=== PATIENT | female | born 1975 | race Hispanic/Latino ===

== ENCOUNTER 2020-02-07 22:48 | Inpatient (IN) | payer OTHER ==
[~2020-02-07] VITALS: Ht 160 cm; Wt 85.3 kg
[2020-02-07] MEDS ORDERED: GLUCOTROL XL10 MG PO (23:01)
[2020-02-07] MEDS ORDERED: METFORMIN HCL1000 MG PO (23:02)
[2020-02-07] MEDS ORDERED: SIMVASTATIN20 MG PO (23:02)
--- NOTE | 2020-02-08 01:30 | NUR ---
Patient arrives to the unit via stretcher wearing a mask and a clean sheet. Patient steady on feet, able to transfer independently to bed. Vital signs taken, assessment complete. Temp of 100.2, SpO2 of 94% on RA, pulse of 105. NS bolus infusing, along with ceftriaxone. Dry, nonproductive cough noted. Patient denies pain or nausea. Water provided. 0200 - NS bolus and ceftriaxone finished infusing. LR hung at 100 mls/hr, along with azithromycin at 250 mls/hr. Patient denies any needs at this time, call light within reach.
--- NOTE | 2020-02-08 03:06 | NUR ---
PT CALLED, UP TO BATHROOM. DID NOT REQUIRE ANY ASSISTANCE OTHER THAN UNPLUGGING IV PUMP. PT STEADY ON FEET. VOID UNMEASURED (MISSED HAT). BSC PLACED NEAR BED SO THAT PT CAN USE BATHROOM WITHOUT ASSISTANCE. PT DENIES FURTHER REQUESTS AT THIS TIME, CALL LIGHT WITHIN REACH.
--- NOTE | 2020-02-08 04:30 | NUR ---
Patient sleeping in bed, respirations even and unlabored. SpO2 of 98% on RA. HR in the 100's. Call light within reach.
--- NOTE | 2020-02-08 06:10 | NUR ---
Patient laying in bed watching tv. New IV started, morning labs drawn from site. Vitals taken, assessment complete. Patient reports pain of 6/10 from headache. Patient up to toilet, voided 1000 mls. HR increases to 120-130's with ambulation. Patient returned to bed independently, steady gait. HR decreases to 100's once back in bed. LR infusing at 100 mls/hr. Water refreshed, patient denies further needs. Call light within reach.
--- NOTE | 2020-02-08 07:30 | NUR ---
SHIFT REPORT RECIEVED FROM RETAIL PERSONAL BANKER RN. PATIENT RESTING IN BED AT THIS TIME. PATIENTS HR IS RESTING ABOUT 105 WILL SLEEPING, BUT INCREASES WITH ACTIVITY. NO OTHER NEEDS AT THIS TIME. CALL LIGHT IN REACH. PATIENT CALLS APPROPRIATELY. WILL CONTINUE TO CLOSELY MONITOR.
--- NOTE | 2020-02-08 09:15 | NUR ---
THIS RN IN TO SEE PATIENT IN PAPR GEAR AND DROPLET PRECAUTIONS. PATIENT ASSESSMENT COMPLETED. UNABLE TO LISTEN TO PATIENTS BREATH SOUNDS D/T WEARING PAPR. PATIENT COMPLAINS OF OCCASIOANL SOB, PATIENT RR 24-30, SPO2 96% ON RA. PATIENTS PULSES ARE STRONG. NO EDEMA NOTED. PATIENT COMPLAINS OF A FRONTAL HEADACHE. PATIENT REQUESTED TO KEEP THE LIGHTS TURNED DOWN. ASSISSTED UP TO THE BATHROOM. PATIENT IS INDEPENDENT ONCE DISCONNECTED FROM CORDS. PLACE A BLANKET IN THE CHAIR. BREAKFAST IN FRONT OF PATIENT. CALL LIGHT ON HER LAP. FLUIDS GOING AT 100MLS/HR PER ORDER. WILL CONTINUE TO CLOSELY MONITOR.
--- NOTE | 2020-02-08 11:04 | NUR ---
PATIENT STILL HAS A HEADACHE 6/10 IN THE FRONTAL AREA. PATIENT HAS A NON-PRODUCTIVE COUGH. PATIENT ATE 100% OF HER BREAKFAST. NO NAUSEA OR VOMITING PRESENT. PATIENT REMAINS ON RA WITH SPO2 94%. PRBC STARTED PER MD MANNING WILL GIVE 1 UNIT OF PRBC. PATIENT TOLERATING WELL. WILL CONTINUE TO CLOSELY MONITOR.
--- NOTE | 2020-02-08 12:45 | NUR ---
PATIENTS HEADACHE IS NOW GONE. PATIENT STATES "I FEEL A LITTLE BETTER THAN WHEN I FIRST CAME IN". PATIENT ASSESSMENT REMAINS UNCHANGED. UNABLE TO LISTEN TO PATIENTS BREATH SOUNDS D/T PAPR GEAR. PATIENT DENIES SOB EVEN WITH EXERTION. PATIENT HAS OCCASIOANL COUGH. PATIENT SPO2 95% ON RA. [id number]. BLOOD TRANSFUSION IS GOING AT THIS TIME. LUNCH ORDERED. ASSISTED PATIENT UP TO THE BATHROOM AND NOW RESTING I NTHE CHAIR EATING LUNCH. WILL CONTINUE TO CLOSELY MONITOR.
--- NOTE | 2020-02-08 14:14 | NUR ---
MED REC COMPLETE
--- NOTE | 2020-02-08 14:15 | NUR ---
BLOOD TRANSFUSION COMPLETED. PATIENT RESTING IN BED. PATIENT STATES SHE IS STILL DOING WELL, DENEIS SOB. DRY COUGH NOTED. WILL GET SPUTUM SAMPLE IF IT BECOMES MORE PRODUCTIVE. PATIENT FAMILY BROUGHT HER BELONGINGS. GAVE PATIENT THEM. PATIENT REQUESTED TO HAVE HER PHONE PLUGGED IN. NO OTHER NEEDS AT THIS TIME. CALLIGHT IN REACH. WILL CONTINUE TO CLOSELY MONITOR.
--- NOTE | 2020-02-08 14:42 | NUR ---
Completed CM assessment by phone with Marlyn as covid lab is pending. Pt states she lives in [place] and works at the [employer]. She is currently off work. She lives with her two adult children and they are able to help her on dc. She does not use any DME. States she is usually healthy and active. See Ana Luisa Barreto at the clinic and uses their pharmacy. She would like to go home on dc.
--- NOTE | 2020-02-08 16:06 | NUR ---
THIS RN IN TO ASSIST PATIENT. PATIENT UP TO THE BATHROOM AND PANTS CHANGED. PATIENT IS SPOTTING FROM HER PERIOD. GAVE HER A CLEAN PAD. ASSISTED BACK TO BED. ASSESSMENT REMAINS UNCHANGED. PATIENTS HR IS SLIGHTLY BETTER THIS AFTERNOON. NO OTHER NEEDS AT THIS TIME. WILL CONTINUE TO CLSOELY MONITOR.
--- NOTE | 2020-02-08 18:24 | NUR ---
PATIENT UP TO THE CHAIR FOR DINNER. PATIENT STATES "MY HEADACHE IS COMING BACK". GAVE PATIENT A CUP OF TEA AND WILL GET TYLENOL. CHECKED PATIENTS TEMP AND NOTED TO BE 103.3. PATIENT DENEIS FEELING COLD OR HAVING CHILLS. DEBI WU CALLED TO UPDATE. SEE NEW ORDERES. WILL CONTINUE TO CLOSELY MONITOR.
--- NOTE | 2020-02-08 19:18 | NUR ---
BLOOD CULTURES DRAWN PER MD MANNING D/T TEMP 103.3. GAVE TYLENOL AFTER BLOOD CULTURES WERE COMPLETED AND DRAWN. PATIENT UP TO THE BATHROOM. NO OTHER NEEDS AT THIS TIME. FRESH WATER AT THE BEDSIDE. WILL CONTINUE TO CLSOELY MONITOR.
--- NOTE | 2020-02-08 19:42 | NUR ---
REPORT RECEIVED FROM TAMIE WU. PT AWAKE IN BED, IN TO CHECK ON HER AND PT DENIES PAIN OR NEEDS. HAS DRY SOUNDING COUGH. RESTING HR 115, RR 28 AND SPO2 ON ROOM AIR 97%.
--- NOTE | 2020-02-08 20:30 | NUR ---
IN TO DO ASSESSMENT AND BLOOD SUGAR. PT STATES HEADACHE SHE HAD EARLIER IS ALMOST GONE. TEMP IS ALSO DOWN. FRUIT GIVEN FOR SNACK PER REQUEST. PT HAS HAD FREQUENT DRY COUGH FOR THE LAST HOUR. LUNGS CLEAR BUT SLIGHTLY DIM ON RIGHT SIDE.
--- NOTE | 2020-02-08 22:15 | NUR ---
IN TO DO VS, PT UP TO BR TO VOID THEN BACK TO BED. HR UP TO 115 WHEN UP THEN BACK DOWN TO 100 IN BED. DENIES PAIN/NEEDS.
--- NOTE | 2020-02-09 00:15 | NUR ---
IN TO CHECK ON PT AND DO ASSESSMENT, WAKES EASILY AND DENIES PAIN OR OTHER NEEDS.
--- NOTE | 2020-02-09 03:33 | NUR ---
UP TO VOID 1000ML, ASSESSMENT DONE. PT DENIES NEEDS AT THIS TIME.
--- NOTE | 2020-02-09 06:00 | NUR ---
ASSISTED PT UP TO VOID THEN BACK TO BED, DENIES PAIN OR OTHER NEEDS AT THIS TIME.
--- NOTE | 2020-02-09 07:30 | NUR ---
PATIENT SHIFT REPORT RECIEVED FROM EHR TRAINER RN. PATIENT RESTING IN BED AT THSI TIME. CALL LIGHT IN REACH. WILL CONTINUE TO CLOSELY MONITOR.
--- NOTE | 2020-02-09 08:42 | NUR ---
PATIENT CALLED TO GET UP TO THE BATHROOM. UNHOOKED FROM CORDS AND PATIENT AMBULATED INTO THE BATHROOM. AM CARES DONE. PATIENT NOW RESTING IN THE CHAIR. BREAKFAST ORDERED. WINDOW OPENED. NO OTHER NEEDS AT THIS TIME. WILL CONTINUE TO CLOSELY MONITOR.
--- NOTE | 2020-02-09 09:45 | NUR ---
BROUGHT PATIENT HER BREAKFAST. PER MD MAY CLEAR PATIENT FROM ISOLATION PRECAUTIONS. MD MANNING IN TO SEE PATIENT. NO OTHER NEEDS AT THIS TIME. WILL CONTINUE TO CLSOELY MONITOR.
--- NOTE | 2020-02-09 12:30 | NUR ---
REPORT GIVEN TO GABBIE ON Novatris. PATIENT WILL TRANSFER TO ROOM 113. PATIENT IS UP TO THE CHAIR RIGHT NOW EATING LUNCH. UPDATED ON PLAN OF CARE. NO FURTHER QUESTIONS AT THIS TIME. WILL CONTINUE TO CLSOELY MONITOR.
--- NOTE | 2020-02-09 13:15 | NUR ---
PT TRANSFERRED FROM CCU TO ROOM 113, SHE IS ALERT, ORIENTED AND IN GOOD SPIRITS, DENIES ANY QUESTIONS OR CONCERNS, ORIENTED TO NEW ROOM, ASKED IF SHE CAN TAKE A SHOWER, DENIES SOB OR DISCOMFORT. PLEASED WITH ROOM, CALL LIGHT IN EASY REACH.
--- NOTE | 2020-02-09 13:24 | NUR ---
AMBULATED WITH PATIENT OVER TO ROOM 113. PATIENT TOLERATED WELL. ALL BELONGINGS SENT WITH PATIENT. ALL QUESTIONS ANSWERED. NO FURTHER QUESTIONS AT THIS TIME. WILL CONTINUE TO CLOSELY MONITOR.
--- NOTE | 2020-02-09 13:45 | NUR ---
PATIENT HAD SHOWER, STATES SHE FEELS MUCH BETTER, WAITING FOR TO COME VISIT, DENIES ANY NEEDS.
--- NOTE | 2020-02-09 14:28 | NUR ---
PATIENT SITTING UP IN CHAIR. PATIENT TOOK A SHOWER. VITAL SIGNS DONE. CALL LIGHT WITHIN REACH. NO OTHER NEEDS AT THIS TIME
--- NOTE | 2020-02-09 17:35 | NUR ---
Pt a&ox4, independent in room. Denies pain, reports cough. Pt calls appropriately. PO zithromax/ IV rocephin.
--- NOTE | 2020-02-09 17:59 | NUR ---
robitussin 10ml admin for reports of cough.
--- NOTE | 2020-02-09 18:03 | NUR ---
PATIENT SITTING UP IN BED. RN AND DAUGHTER IN ROOM. VITAL SIGNS AND I&O DONE. CALL LIGHT WITHIN REACH. NO OTHER NEEDS AT THIS TIME
--- NOTE | 2020-02-09 19:42 | NUR ---
SHIFT REPORT RECIEVED FROM BUNNY WU. PT RESTING IN BED, WATCHING TV. NO NEEDS AT THIS TIME. CALL LIGHT IN REACH.
--- NOTE | 2020-02-09 21:36 | NUR ---
ASSESSMENT COMPLETED. IVs CDI, WNL, FLUSHED WELL. LUNGS CLEAR IN ALL LOBES. PT DENIES SOB. SCHEDULED MEDS PROVIDED. JELLO PROVIDED. CBG 171, INSULIN PROVIDED. NO OTHER NEEDS AT THIS TIME. CALL LIGHT IN REACH.
--- NOTE | 2020-02-09 22:12 | NUR ---
99.9f TEMP, FEVER MED PROVIDED. PT REQUESTS COUGH MED, PROVIDED. NO OTHER NEEDS AT THIS TIME CALL LIGHT IN REACH.
--- NOTE | 2020-02-10 00:45 | NUR ---
PT RESTING IN BED, WAKES TO VOICE. TEMP 98.0f ORAL. NO OTHER NEEDS. CALL LIGHT IN REACH.
--- NOTE | 2020-02-10 03:00 | NUR ---
PT RESTING IN BED, EYES CLOSED. RR EVEN, UNLABORED. CALL LIGHT IN REACH.
--- NOTE | 2020-02-10 05:59 | NUR ---
PT SLEPT WELL TONIGHT. VSS, UOS, NO SOB. PT TEMP 99.9f ORAL, MANAGED WITH TYLENOL. PT TOLERATED DIET WELL. CBG 171, MANAGED WITH MEDICATION. IV WNL, FLUSHED WELL. LUNGS CLEAR. OCCASSIONAL DRY COUGH, MANAGED WITH PRN MEDICATION. PT TOLERATED MEDICATION WELL.
--- NOTE | 2020-02-10 06:27 | NUR ---
ASSESSMENI, VS AND I&O COMPLETED. LUNGS CLEAR. NO SOB. IVs WNL. PT DENIES PAIN. NO OTHER NEEDS. CALL LIGHT IN REACH.
--- NOTE | 2020-02-10 07:19 | NUR ---
PT RESTING SOUNDLY AT TIME OF REPORT, LEFT UNDISTURBED. APPEARS COMFORTABLE BREATHING EVEN AND UNLABORED CALL LIGHT IN REACH
--- NOTE | 2020-02-10 07:40 | NUR ---
IN ROOM FOR AM SUGAR CHECK. PATIENT SITTING UP IN BED. CALL LIGHT IN REACH.
--- NOTE | 2020-02-10 09:19 | NUR ---
PT UP TO THE CHAIR FOR MORNING MEAL ASKING IF SHE GETS TO GO HOME TODAY STATES SHE IS READY. AMBULATES THE DIAZ AND RETURNS TO THE CHAIR IN HER ROOM. PT HAS A DRY COUGH NO C/O SOB OR NEEDS OF
[2020-02-10] MEDS ORDERED: CEFPODOXIME PR200 MG PO (09:38)
--- NOTE | 2020-02-10 09:58 | NUR ---
DR MANNING IN TO SEE PT DC ORDERS WRITTEN. PT REFUSES ASSIST TO DRESS, IV SITES DC'D X2.
--- NOTE | 2020-02-10 10:21 | NUR ---
D/C VITALS AND I&OS DONE AND CHARTED. PATIENT READY TO GO.
== END 2020-02-10 11:45 | disposition home or self-care (01) | DRG 195 ==
LOC: ED 22:48 → CCU 22:50 → MS 02-09 13:15
PROVIDERS: ADMIT Internal Medicine
PROC: 30233N1 Transfusion of Nonautologous Red Blood Cells into Peripheral Vein, Percutaneous Approach (ICD-10-PCS; principal; 2020-02-08)
DX: J13 Pneumonia due to Streptococcus pneumoniae (principal); J18.8 Other pneumonia, unspecified organism; E78.5 Hyperlipidemia, unspecified; E11.9 Type 2 diabetes mellitus without complications; D50.0 Iron deficiency anemia secondary to blood loss (chronic); N92.0 Excessive and frequent menstruation with regular cycle; E87.6 Hypokalemia; Z20.828 Contact with and (suspected) exposure to other viral communicable diseases; Z79.899 Other long term (current) drug therapy; Z79.84 Long term (current) use of oral hypoglycemic drugs
CPT/HCPCS: 36415; 36430; 71046; 80048; 80053; 83036; 83605; 83735; 85025; 86850; 86900; 86901; 86920; 94667; 94668; 99285-25; C9803; G0378; J0456; J0696; J1650; J1815; J7030; J7060; J7121; P9016; U0002

== ENCOUNTER 2020-09-12 02:20 | Emergency (ER) | payer OTHER ==
[~2020-09-12] VITALS: Ht 160 cm; Wt 81.6 kg
[~2020-09-12 02:20] MED LIST: CEFPODOXIME PR200 MG PO; GLUCOTROL XL10 MG PO; METFORMIN HCL1000 MG PO; SIMVASTATIN20 MG PO
[2020-09-12] MEDS ORDERED: CEPHALEXIN500 MG PO (04:39)
[2020-09-12] MEDS ORDERED: FEROSUL325 MG PO (04:39)
== END 2020-09-12 05:40 | disposition home or self-care (01) ==
LOC: ED 02:20
DX: A41.89 Other specified sepsis (principal); N39.0 Urinary tract infection, site not specified; U07.1 COVID-19; D50.9 Iron deficiency anemia, unspecified; E11.9 Type 2 diabetes mellitus without complications; Z79.899 Other long term (current) drug therapy; Z79.84 Long term (current) use of oral hypoglycemic drugs
CPT/HCPCS: 71045; 80053; 81001; 83605; 85025; 87040; 87077; 87088; 87186; 96365; 99285-25; J0696

== ENCOUNTER 2021-08-10 10:40 | Emergency (ER) | payer OTHER ==
[~2021-08-10] VITALS: Ht 160 cm; Wt 81.7 kg
[~2021-08-10 10:40] MED LIST changes: +CEPHALEXIN500 MG PO; +FEROSUL325 MG PO
[2021-08-10] MEDS ORDERED: AUGMENTIN 875-1 EACH PO (14:20)
== END 2021-08-10 14:34 | disposition home or self-care (01) ==
LOC: ED 10:40
DX: J18.9 Pneumonia, unspecified organism (principal); Z20.822 Contact with and (suspected) exposure to COVID-19; E11.9 Type 2 diabetes mellitus without complications; D64.9 Anemia, unspecified; Z79.899 Other long term (current) drug therapy; Z79.84 Long term (current) use of oral hypoglycemic drugs
CPT/HCPCS: 71045; 99284-25; C9803; U0003

== ENCOUNTER 2024-05-19 16:01 | Emergency (ER) | payer OTHER ==
[~2024-05-19] VITALS: Ht 160 cm; Wt 84.1 kg
[~2024-05-19 16:01] MED LIST changes: +AUGMENTIN 875-1 EACH PO
[2024-05-19] MEDS ORDERED: PIOGLITAZONE HC15 MG PO (17:20)
[2024-05-19] MEDS ORDERED: ATORVASTATIN CA20 MG PO (17:21)
[2024-05-19] MEDS ORDERED: DAPAGLIFLOZIN10 MG PO (17:21)
[2024-05-19] MEDS ORDERED: LISINOPRIL10 MG PO (17:21)
[2024-05-19] MEDS ORDERED: GABAPENTIN300 MG PO (17:21)
[2024-05-19 17:28] LABS: BASOPHILS 1.1 % (0-2); EOSINOPHILS 0.6 % (0-6); HEMOGLOBIN 11.6 g/dL (12.0-18.0); LYMPHOCYTES 34.8 % (24-44); MCH 25.1 (27-36); MCHC 31.2 g/dl (30-36); MCV 80.3 fl (81-99); NEUTROPHILS 59.5 % (39-80); PLATELET COUNT 426 K/uL (140-440); RBC 4.61 M/ul (4.3-5.7); RDW 18.9 (10.5-15.0)
[2024-05-19 17:30] VITALS: BP 135/69
[2024-05-19 17:47] LABS: ALBUMIN 3.7 g/dL (3.4-5.0); ALKALINE PHOSPHATASE 83 U/L (46-116); ALT (SGPT) 18 U/L (14-59); ANION GAP 13.9 (7-21); AST (SGOT) 14 U/L (15-37); BILIRUBIN, TOTAL 0.2 ng/dL (0.2-1.0); BUN/CREATININE RATIO 12.85 (6.0-28.6); CALCIUM 9.7 mg/dL (8.5-10.1); CARBON DIOXIDE 28 mmol/L (21-32); CHLORIDE 105 mmol/L (98-107); GLOMERULAR FILTRATION RATE,EST 107 mL/min (>60); MAGNESIUM 2.2 mg/dL (1.8-2.4); POTASSIUM 3.9 mmol/L (3.5-5.1); PROTEIN, TOTAL 7.8 g/dL (6.4-8.2); UREA NITROGEN 9 mg/dL (7-18)
--- NOTE | 2024-05-20 21:03 | EKG ---
[facility] [address] [place], [place] [address] Signed Normal sinus rhythm Low voltage QRS Cannot rule out Anterior infarct , age undetermined Abnormal ECG No previous ECGs available Confirmed by Jay Carrion MD ([id number]) on 05/20/2024 9:03:37 PM Electronically Signed By: JAY CARRION MD [id number] PATIENT NAME: NOAH MOSERJUANA Electrocardiogram DATE OF : 75 PHYSICIAN: JAY CARRION MD REPORT #: [id number] REPORT IS CONFIDENTIAL AND NOT TO BE RELEASED WITHOUT AUTHORIZATION
== END 2024-05-19 17:30 | disposition home or self-care (01) ==
LOC: ED 16:01
PROVIDERS: Emergency Medicine
DX: R42 Dizziness and giddiness (principal); R07.89 Other chest pain; E11.9 Type 2 diabetes mellitus without complications; Z79.84 Long term (current) use of oral hypoglycemic drugs; Z79.899 Other long term (current) drug therapy
CPT/HCPCS: 36415; 80053; 83735; 84484; 85025; 93005; 93010; 99285

== ENCOUNTER 2024-07-16 07:53 | Emergency (ER) | payer OTHER ==
[~2024-07-16] VITALS: Ht 160 cm; Wt 82.9 kg
[~2024-07-16 07:53] MED LIST changes: +ATORVASTATIN CA20 MG PO; +DAPAGLIFLOZIN10 MG PO; +GABAPENTIN300 MG PO; +LISINOPRIL10 MG PO; +PIOGLITAZONE HC15 MG PO
[2024-07-16] MEDS ORDERED: ondansetron HCL 4 MG/2 ML VIAL IV ONE (08:15)
[2024-07-16] MEDS ORDERED: SODIUM CHLORIDE 0.9% 1,000 ML IV ONE (08:15)
[2024-07-16] MEDS ORDERED: KETOROLAC TROMETHAMINE 30 MG/ML VIAL IV ONE ×2 (08:15→09:00)
[2024-07-16 08:32] LABS: BASOPHILS 0.4 % (0-2); EOSINOPHILS 0.1 % (0-6); HEMATOCRIT 36.8 % (35.0-50.0); HEMOGLOBIN 12.1 g/dL (12.0-18.0); LYMPHOCYTES 13.4 % (24-44); MCH 27.1 (27-36); MCHC 32.8 g/dl (30-36); MCV 82.5 fl (81-99); MONOCYTES 4.7 % (0-12); NEUTROPHILS 81.4 % (39-80); PLATELET COUNT 365 K/uL (140-440); RBC 4.46 M/ul (4.3-5.7); RDW 16.6 (10.5-15.0)
[2024-07-16 08:34] LABS: BILIRUBIN, URINE NEGATIVE (negative); BLOOD/HGB, URINE LARGE (Negative); KETONE, URINE NEGATIVE (Negative); LEUK ESTERASE, URINE NEGATIVE (negative); NITRITE, URINE POSITIVE (negative); PH, URINE 6.5 (5-7)
[2024-07-16 08:45] LABS: BACTERIA, URINE 3+ /hpf (negative); CASTS, URINE NONE SEEN \\lpf; COLLECTION TYPE, URINE CLEAN CATCH; CRYSTALS, URINE NONE SEEN (0-1+); EPITHELIAL CELLS, URINE OCCASIONAL /lpf (0-1+); REFLEX CULTURE, URINE Yes (No)
[2024-07-16 08:50] LABS: ALBUMIN 3.4 g/dL (3.4-5.0); ALBUMIN/GLOBULIN RATIO 0.77 (1.1-2.4); ANION GAP 14.1 (7-21); BILIRUBIN, TOTAL 0.2 ng/dL (0.2-1.0); BUN/CREATININE RATIO 14.08 (6.0-28.6); CALCIUM 9.6 mg/dL (8.5-10.1); CREATININE, SERUM 0.71 mg/dL (0.55-1.02); POTASSIUM 4.1 mmol/L (3.5-5.1); PROTEIN, TOTAL 7.8 g/dL (6.4-8.2)
[2024-07-16] MEDS ORDERED: CEFTRIAXONE/SODIUM CHLORIDE 1 GM/100 ML PIGGYBACK IV ONE (09:15)
[2024-07-16] MEDS ORDERED: KETOROLAC TROME10 MG PO (10:51)
[2024-07-16] MEDS ORDERED: CEFDINIR300 MG PO (10:51)
[2024-07-16 10:53] VITALS: BP 129/79
== END 2024-07-16 10:55 | disposition home or self-care (01) ==
LOC: ED 07:53
PROVIDERS: Emergency Medicine
DX: N12 Tubulo-interstitial nephritis, not specified as acute or chronic (principal); K80.20 Calculus of gallbladder without cholecystitis without obstruction; E11.9 Type 2 diabetes mellitus without complications; Z86.73 Personal history of transient ischemic attack (TIA), and cerebral infarction without residual deficits; Z79.899 Other long term (current) drug therapy; Z79.84 Long term (current) use of oral hypoglycemic drugs
CPT/HCPCS: 36415; 74176; 80053; 81001; 83690; 84703; 85025; 87077; 87088; 87186; 96365; 96375; 99283-25; J0696; J1885; J2405; J7030